=== PATIENT | female | born 1990 | race Two or more races ===

== ENCOUNTER 2023-02-28 18:46 | Emergency (ER) | payer OTHER ==
[2023-02-28 18:54] VITALS: BP 117/77; PULSE 86; RESP 18; TEMP 98; BMI 25.0
== END 2023-02-28 20:32 | disposition home or self-care (01) ==
LOC: JERFT 18:46
DX: S50.12XA Contusion of left forearm, initial encounter (principal); M79.601 Pain in right arm; V43.52XA Car driver injured in collision with other type car in traffic accident, initial encounter
CPT/HCPCS: 99282-25